=== PATIENT | male | born 1955 | race Caucasian/White ===

== ENCOUNTER → 2017-02-13 | Outpatient (CLI) | payer OTHER | LOC: CLAB 09:47 | DX: C61 Malignant neoplasm of prostate (principal) | CPT/HCPCS: 36415; 84153 ==

== ENCOUNTER → 2017-07-25 | Outpatient (CLI) | payer OTHER | LOC: CLAB 07:46 | DX: C61 Malignant neoplasm of prostate (principal); N52.9 Male erectile dysfunction, unspecified; R35.0 Frequency of micturition; R35.1 Nocturia; M81.0 Age-related osteoporosis without current pathological fracture; D50.9 Iron deficiency anemia, unspecified; E78.2 Mixed hyperlipidemia; C79.51 Secondary malignant neoplasm of bone | CPT/HCPCS: 36415; 84153 ==